=== PATIENT | female | born 1960 | race Caucasian/White ===

== ENCOUNTER 2023-03-13 16:45 | Emergency (ER) | payer SELFPAY ==
[2023-03-13] VITALS (39 sets, daily range): BP systolic 99–126; BP diastolic 51–82; PULSE 63–97; RESP 14–28; TEMP 36.5–36.8; O2SAT 92–100; BMI 26.4
--- NOTE | 2023-03-13 16:58 | ED_ITS ---
HPI - General Adult <Anthony Lam DO - Last Filed: 03/13/23 18:25> General Chief complaint: Trauma Stated complaint: mod trauma Time Seen by Provider: 03/13/23 16:54 Source: patient Mode of arrival: EMS Limitations: no limitations History of Present Illness HPI narrative: Patient is a 62-year-old female. She was helmeted. Was riding a horse when she states that the horse got spooked. She fell off the horse. She use her right arm to break her fall. Has an obvious deformity to her left wrist. No other injuries from the event. She was ambulatory afterwards. She was not kicked nor stomped on by the horse. She reports no other injuries but her left wrist/forearm. Her left wrist was splinted and she was given both fentanyl and ketamine prior to arrival. Related Data Allergies Allergy/AdvReac Type Severity Reaction Status Date / Time Sulfa (Sulfonamide AdvReac Mild Nausea Verified 03/13/23 17:10 Antibiotics) Review of Systems <DO Esmer Zamora Last Filed: 03/13/23 18:25> Constitutional Constitutional: Reports system reviewed and no additional complaints, except as documented Musculoskeletal Musculoskeletal: Reports system reviewed and no additional complaints, except as documented Integumentary/Breasts Skin/Breast: Reports system reviewed and no additional complaints, except as documented Neurologic Neurologic: Reports system reviewed and no additional complaints, except as documented Hematologic/Lymphatic On Anticoagulants: No Patient History <DO Esmer Zamoar Last Filed: 03/13/23 18:25> Social History Smoking Status: Never smoker Exam <DO Esmer Zamora Last Filed: 03/13/23 18:25> Initial Vital Signs Initial Vital Signs: Vital Signs Temperature 97.7 F 03/13/23 16:48 Pulse Rate 73 03/13/23 16:48 Respiratory Rate 14 03/13/23 16:48 Blood Pressure 126/78 03/13/23 16:48 Pulse Oximetry 99 03/13/23 16:48 Oxygen Delivery Method Room Air 03/13/23 16:48 HENMT Head: normal to inspection and normocephalic Resp Effort & Inspection: normal respiratory effort Auscultation: clear to auscultation bilaterally Cardio Rate: regular rate Rhythm: regular rhythm GI Inspection: normal to inspection and non-distended Palpation: soft and No tender Back/Spine/Pelvis Cervical Spine: No cervical spinal tenderness Skin Other: Multiple skin abrasions in the left forearm Neuro Sensory Exam: no sensory deficits noted Extrem Other: Obvious deformity to the left wrist. Her left shoulder is unremarkable. Right upper extremity is unremarkable. Pelvis is stable. Bilateral lower extremities unremarkable. <Donavan Espinoza DO - Last Filed: 03/14/23 02:58> Initial Vital Signs Initial Vital Signs: Vital Signs Temperature 97.7 F 03/13/23 16:48 Pulse Rate 73 03/13/23 16:48 Respiratory Rate 14 03/13/23 16:48 Blood Pressure 126/78 03/13/23 16:48 Pulse Oximetry 99 03/13/23 16:48 Oxygen Delivery Method Room Air 03/13/23 16:48 <Donavan Espinoza DO - Last Filed: 03/14/23 02:58> Orthopedic Fracture Reduction Fracture #1: Time Out Performed: Yes Side: left Fracture Reduction Location: radius and ulna Analgesia: procedural sedation Technique: direct manipulation and traction/counter-traction Post Reduction X-rays Demonstrate: anatomical reduction Post-reduction neuro exam: intact Post-reduction vascular exam: intact Splint Applied: Yes Patient Tolerated Procedure: Well Orthopedic Splinting/Casting Injury #1: Side: left Upper Extremity Injury Location: wrist Upper Extremity Immobilizer: sling/shoulder immobilizer and sugar tong splint Post splinting neuro exam: intact Post splinting vascular exam: intact Placed by: Provider Procedural Sedation Consent signed: Yes Time out performed: Yes Indication: fracture/dislocation reduction ASA Class: II Mallampati Airway Classification: Class II IV Propofol dose (mg): 70 Intraservice time/total sedation time (min): 12 ED Sedation Level: Moderate (Concious) Patient Tolerated Procedure: Well Complications: none Scores <Anthony Lam DO - Last Filed: 03/13/23 18:25> GCS Heather coma scale eye opening: Spontaneous Heather coma scale verbal response: Orientated Heather coma scale motor response: Obey commands Heather coma scale total score: 15 Nexus Score for C-Spine Focal Neurologic deficit present: No Midline spinal tenderness present: No Altered level of conciousness present: No Intoxication present: No Distracting Injury Present: No Nexus Criteria for C-spine: 0 <Donavan Espinoza DO - Last Filed: 03/14/23 02:58> GCS Heather coma scale total score: 15 Nexus Score for C-Spine Nexus Criteria for C-spine: 0 Course <DO Esmer Zamora Last Filed: 03/13/23 18:25> Orders Ordered: ED Orders 03/13/23 19:14 XR wrist LT 2V Stat Discontinued Medications Hydrocodone Bitart/Acetaminophen (Hydrocodone/Acet 5/325 Prepack) 1 bottle MISC SEEINSTR ONE Stop: 03/13/23 19:45 Last Admin: 03/13/23 20:23 Dose: 1 bottle Documented By: JARETT Fentanyl (Fentanyl 100 Mcg/2 Ml Inj) 50 mcg IV NOW ONE Stop: 03/13/23 18:31 Last Admin: 03/13/23 18:48 Dose: 50 mcg Documented By: JARETT Hydromorphone HCl (Hydromorphone 1 Mg Inj) 1 mg IV NOW ONE Stop: 03/13/23 17:58 Last Admin: 03/13/23 18:09 Dose: 1 mg Documented By: JARETT Hydromorphone HCl (Hydromorphone 1 Mg Inj) 1 mg IV NOW ONE Stop: 03/13/23 20:30 Last Admin: 03/13/23 20:35 Dose: 1 mg Documented By: JARETT Sodium Chloride (Normal Saline 0.9%) 500 mls @ 1,000 mls/hr IV BOLUS ONE Stop: 03/13/23 20:03 Last Infusion: 03/13/23 20:22 Dose: 0 mls/hr Documented By: Admin: 03/13/23 19:40 Dose: 1,000 mls/hr Documented By: JARETT Ondansetron HCl (Ondansetron 4 Mg/2 Ml Inj) 4 mg IV NOW ONE Stop: 03/13/23 18:31 Last Admin: 03/13/23 18:48 Dose: 4 mg Documented By: JARETT Ondansetron HCl (Ondansetron 4 Mg Odt Prepack) 1 bottle MISC SEEINSTR ONE Stop: 03/13/23 19:45 Last Admin: 03/13/23 20:23 Dose: 1 bottle Documented By: JARETT Propofol (Propofol 200 Mg/20 Ml Vial) 65 mg 1 mg/kg (65 mg) IV NOW ONE Stop: 03/13/23 18:31 Last Admin: 03/13/23 19:05 Dose: 65 mg Documented By: SB Vital Signs Vital signs: Vital Signs - 8 hr 03/13/23 18:56 03/13/23 19:10 03/13/23 19:20 Temperature 98.2 F Pulse Rate 91 H 92 H 77 Respiratory Rate 18 17 23 Blood Pressure 111/59 L 106/59 L 105/58 L Pulse Oximetry 99 96 100 Oxygen Delivery Method Oxygen Flow Rate 0 37 0 03/13/23 19:25 03/13/23 19:30 03/13/23 19:35 Temperature Pulse Rate 77 77 92 H Respiratory Rate 22 16 20 Blood Pressure 99/58 L 104/63 104/63 Pulse Oximetry 100 100 100 Oxygen Delivery Method Oxygen Flow Rate 0 0 0 03/13/23 19:15 03/13/23 18:55 03/13/23 18:55 Temperature Pulse Rate 82 71 Respiratory Rate 22 17 Blood Pressure 112/59 L 103/53 L Pulse Oximetry 100 98 Oxygen Delivery Method Oxygen Flow Rate 0 03/13/23 18:59 03/13/23 18:59 03/13/23 19:00 Temperature Pulse Rate 79 Respiratory Rate 15 Blood Pressure 110/58 L 109/61 Pulse Oximetry 99 Oxygen Delivery Method Oxygen Flow Rate 03/13/23 19:00 03/13/23 19:05 03/13/23 19:05 Temperature Pulse Rate 79 78 Respiratory Rate 17 21 Blood Pressure 111/59 L Pulse Oximetry 99 100 Oxygen Delivery Method Oxygen Flow Rate 03/13/23 19:10 03/13/23 19:10 03/13/23 19:15 Temperature Pulse Rate 80 89 Respiratory Rate 19 14 Blood Pressure 106/59 L Pulse Oximetry 98 96 Oxygen Delivery Method Oxygen Flow Rate 03/13/23 19:15 03/13/23 19:22 03/13/23 19:22 Temperature Pulse Rate 81 Respiratory Rate 20 Blood Pressure 112/59 L 105/58 L Pulse Oximetry 100 Oxygen Delivery Method Oxygen Flow Rate 03/13/23 19:25 03/13/23 19:25 03/13/23 19:30 Temperature Pulse Rate 74 Respiratory Rate 15 Blood Pressure 99/58 L 104/63 Pulse Oximetry 100 Oxygen Delivery Method Oxygen Flow Rate 03/13/23 19:30 03/13/23 19:36 03/13/23 19:36 Temperature Pulse Rate 80 87 Respiratory Rate 16 19 Blood Pressure 108/54 L Pulse Oximetry 100 100 Oxygen Delivery Method Oxygen Flow Rate 03/13/23 19:40 03/13/23 19:40 03/13/23 19:45 Temperature Pulse Rate 90 Respiratory Rate 21 Blood Pressure 108/57 L 107/63 Pulse Oximetry 100 Oxygen Delivery Method Oxygen Flow Rate 03/13/23 19:45 03/13/23 19:50 03/13/23 19:50 Temperature Pulse Rate 90 85 Respiratory Rate 18 19 Blood Pressure 110/62 Pulse Oximetry 100 100 Oxygen Delivery Method Oxygen Flow Rate 03/13/23 19:55 03/13/23 19:55 03/13/23 20:00 Temperature Pulse Rate 76 Respiratory Rate 19 Blood Pressure 110/61 107/56 L Pulse Oximetry 100 Oxygen Delivery Method Oxygen Flow Rate 03/13/23 20:00 03/13/23 20:05 03/13/23 20:05 Temperature Pulse Rate 91 H 97 H Respiratory Rate 21 16 Blood Pressure 115/57 L Pulse Oximetry 100 100 Oxygen Delivery Method Oxygen Flow Rate 03/13/23 20:10 03/13/23 20:10 03/13/23 20:15 Temperature Pulse Rate 92 H 86 Respiratory Rate 24 20 Blood Pressure 109/60 Pulse Oximetry 100 100 Oxygen Delivery Method Room Air Oxygen Flow Rate 03/13/23 20:15 03/13/23 20:20 03/13/23 20:20 Temperature Pulse Rate 74 Respiratory Rate 24 Blood Pressure 105/58 L 111/56 L Pulse Oximetry 100 Oxygen Delivery Method Room Air Oxygen Flow Rate 03/13/23 20:25 03/13/23 20:25 03/13/23 20:30 Temperature Pulse Rate 89 Respiratory Rate 20 Blood Pressure 110/58 L 122/59 L Pulse Oximetry 100 Oxygen Delivery Method Oxygen Flow Rate 03/13/23 20:30 03/13/23 20:36 03/13/23 20:36 Temperature Pulse Rate 92 H 90 Respiratory Rate 28 H 15 Blood Pressure 124/82 Pulse Oximetry 100 99 Oxygen Delivery Method Room Air Oxygen Flow Rate 03/13/23 20:40 Temperature Pulse Rate Respiratory Rate Blood Pressure 121/75 Pulse Oximetry Oxygen Delivery Method Oxygen Flow Rate <Donavan Espinoza, DO - Last Filed: 03/14/23 02:58> Orders Ordered: ED Orders 03/13/23 19:14 XR wrist LT 2V Stat Discontinued Medications Hydrocodone Bitart/Acetaminophen (Hydrocodone/Acet 5/325 Prepack) 1 bottle MISC SEEINSTR ONE Stop: 03/13/23 19:45 Last Admin: 03/13/23 20:23 Dose: 1 bottle Documented By: JARETT Fentanyl (Fentanyl 100 Mcg/2 Ml Inj) 50 mcg IV NOW ONE Stop: 03/13/23 18:31 Last Admin: 03/13/23 18:48 Dose: 50 mcg Documented By: JARETT Hydromorphone HCl (Hydromorphone 1 Mg Inj) 1 mg IV NOW ONE Stop: 03/13/23 17:58 Last Admin: 03/13/23 18:09 Dose: 1 mg Documented By: JARETT Hydromorphone HCl (Hydromorphone 1 Mg Inj) 1 mg IV NOW ONE Stop: 03/13/23 20:30 Last Admin: 03/13/23 20:35 Dose: 1 mg Documented By: JARETT Sodium Chloride (Normal Saline 0.9%) 500 mls @ 1,000 mls/hr IV BOLUS ONE Stop: 03/13/23 20:03 Last Infusion: 03/13/23 20:22 Dose: 0 mls/hr Documented By: Admin: 03/13/23 19:40 Dose: 1,000 mls/hr Documented By: JARETT Ondansetron HCl (Ondansetron 4 Mg/2 Ml Inj) 4 mg IV NOW ONE Stop: 03/13/23 18:31 Last Admin: 03/13/23 18:48 Dose: 4 mg Documented By: JARETT Ondansetron HCl (Ondansetron 4 Mg Odt Prepack) 1 [facility] Stop: 03/13/23 19:45 Last Admin: 03/13/23 20:23 Dose: 1 bottle Documented By: JARETT Propofol (Propofol 200 Mg/20 Ml Vial) 65 mg 1 mg/kg (65 mg) IV NOW ONE Stop: 03/13/23 18:31 Last Admin: 03/13/23 19:05 Dose: 65 mg Documented By: JARETT Consultations Consultation #1: Discussed with on-call orthopedist, Dr. Mak. We have discussed history and physical exam, he is reviewed imaging, agrees with the plan to perform sedation, closed reduction with splinting and follow-up Vital Signs Vital signs: Vital Signs - 8 hr 03/13/23 18:56 03/13/23 19:10 03/13/23 19:20 Temperature 98.2 F Pulse Rate 91 H 92 H 77 Respiratory Rate 18 17 23 Blood Pressure 111/59 L 106/59 L 105/58 L Pulse Oximetry 99 96 100 Oxygen Delivery Method Oxygen Flow Rate 0 37 0 03/13/23 19:25 03/13/23 19:30 03/13/23 19:35 Temperature Pulse Rate 77 77 92 H Respiratory Rate 22 16 20 Blood Pressure 99/58 L 104/63 104/63 Pulse Oximetry 100 100 100 Oxygen Delivery Method Oxygen Flow Rate 0 0 0 03/13/23 19:15 03/13/23 18:55 03/13/23 18:55 Temperature Pulse Rate 82 71 Respiratory Rate 22 17 Blood Pressure 112/59 L 103/53 L Pulse Oximetry 100 98 Oxygen Delivery Method Oxygen Flow Rate 0 03/13/23 18:59 03/13/23 18:59 03/13/23 19:00 Temperature Pulse Rate 79 Respiratory Rate 15 Blood Pressure 110/58 L 109/61 Pulse Oximetry 99 Oxygen Delivery Method Oxygen Flow Rate 03/13/23 19:00 03/13/23 19:05 03/13/23 19:05 Temperature Pulse Rate 79 78 Respiratory Rate 17 21 Blood Pressure 111/59 L Pulse Oximetry 99 100 Oxygen Delivery Method Oxygen Flow Rate 03/13/23 19:10 03/13/23 19:10 03/13/23 19:15 Temperature Pulse Rate 80 89 Respiratory Rate 19 14 Blood Pressure 106/59 L Pulse Oximetry 98 96 Oxygen Delivery Method Oxygen Flow Rate 03/13/23 19:15 03/13/23 19:22 03/13/23 19:22 Temperature Pulse Rate 81 Respiratory Rate 20 Blood Pressure 112/59 L 105/58 L Pulse Oximetry 100 Oxygen Delivery Method Oxygen Flow Rate 03/13/23 19:25 03/13/23 19:25 03/13/23 19:30 Temperature Pulse Rate 74 Respiratory Rate 15 Blood Pressure 99/58 L 104/63 Pulse Oximetry 100 Oxygen Delivery Method Oxygen Flow Rate 03/13/23 19:30 03/13/23 19:36 03/13/23 19:36 Temperature Pulse Rate 80 87 Respiratory Rate 16 19 Blood Pressure 108/54 L Pulse Oximetry 100 100 Oxygen Delivery Method Oxygen Flow Rate 03/13/23 19:40 03/13/23 19:40 03/13/23 19:45 Temperature Pulse Rate 90 Respiratory Rate 21 Blood Pressure 108/57 L 107/63 Pulse Oximetry 100 Oxygen Delivery Method Oxygen Flow Rate 03/13/23 19:45 03/13/23 19:50 03/13/23 19:50 Temperature Pulse Rate 90 85 Respiratory Rate 18 19 Blood Pressure 110/62 Pulse Oximetry 100 100 Oxygen Delivery Method Oxygen Flow Rate 03/13/23 19:55 03/13/23 19:55 03/13/23 20:00 Temperature Pulse Rate 76 Respiratory Rate 19 Blood Pressure 110/61 107/56 L Pulse Oximetry 100 Oxygen Delivery Method Oxygen Flow Rate 03/13/23 20:00 03/13/23 20:05 03/13/23 20:05 Temperature Pulse Rate 91 H 97 H Respiratory Rate 21 16 Blood Pressure 115/57 L Pulse Oximetry 100 100 Oxygen Delivery Method Oxygen Flow Rate 03/13/23 20:10 03/13/23 20:10 03/13/23 20:15 Temperature Pulse Rate 92 H 86 Respiratory Rate 24 20 Blood Pressure 109/60 Pulse Oximetry 100 100 Oxygen Delivery Method Room Air Oxygen Flow Rate 03/13/23 20:15 03/13/23 20:20 03/13/23 20:20 Temperature Pulse Rate 74 Respiratory Rate 24 Blood Pressure 105/58 L 111/56 L Pulse Oximetry 100 Oxygen Delivery Method Room Air Oxygen Flow Rate 03/13/23 20:25 03/13/23 20:25 03/13/23 20:30 Temperature Pulse Rate 89 Respiratory Rate 20 Blood Pressure 110/58 L 122/59 L Pulse Oximetry 100 Oxygen Delivery Method Oxygen Flow Rate 03/13/23 20:30 03/13/23 20:36 03/13/23 20:36 Temperature Pulse Rate 92 H 90 Respiratory Rate 28 H 15 Blood Pressure 124/82 Pulse Oximetry 100 99 Oxygen Delivery Method Room Air Oxygen Flow Rate 03/13/23 20:40 Temperature Pulse Rate Respiratory Rate Blood Pressure 121/75 Pulse Oximetry Oxygen Delivery Method Oxygen Flow Rate Medical Decision Making <Anthony Lam DO - Last Filed: 03/13/23 18:25> Lab Data Lab results reviewed: Yes I reviewed the patient's lab results. 03/13/23 17:05 03/13/23 16:53 Labs: Lab Results 03/13/23 03/13/23 Range/Units 16:53 17:05 WBC 7.2 (4.5-11.0) X10^3/uL RBC 4.60 (4.0-5.2) X10^6/uL Hgb 13.8 (12.0-16.0) g/dL Hct 40.2 (36-46) % MCV 87.4 (80-100) fL MCH 30.0 (26-34) PG MCHC 34.4 (30-36) % RDW 12.8 (11.6-14.8) % Plt Count 278 (150-400) X10^3/uL Neut % (Auto) 66.4 (50-75) % Lymph % (Auto) 22.4 L (25-40) % [place] % (Auto) 8.5 (3-14) % Eos % (Auto) 1.8 L (2-4) % Baso % (Auto) 0.9 (0-2) % Neut # (Auto) 4800 (2171-0350) /uL Lymph # (Auto) 1600 (6204-4088) /uL [place] # (Auto) 600 (0-900) /uL Eos # (Auto) 100 (0-450) /uL Baso # (Auto) 100 (0-100) /uL Sodium 138 (137-145) mmol/L Potassium 4.2 (3.4-5.1) mmol/L Chloride 106 (98-107) mmol/L Carbon Dioxide 23 (22-32) mmol/L BUN 16 (7-17) mg/dL Creatinine 0.96 (0.52-1.04) mg/dL Estimated GFR > 60 (>60) mL/min BUN/Creatinine Ratio 16.7 (6-22) Glucose 88 (80-110) mg/dL Calcium 9.4 (8.4-10.2) mg/dL Point of Care Testing Test Results Not applicable Point of care testing: Point of Care Testing Test Results Not applicable Imaging Data Extremity x-ray #1: Radiologist's Impression: PROCEDURE:? XR WRIST LT MIN 3V ? INDICATIONS: deformity after fall ? TECHNIQUE:? 2 views of the wrist were acquired.? ? COMPARISON:? None. ? FINDINGS:? ? Bones:? There is a comminuted fracture involving the distal radius, with moderate volar displacement and impaction.? There is intra-articular involvement. ? There is a comminuted moderately angulated fracture seen of the distal ulna.? There is also an ulnar styloid fracture seen. ? Soft tissues:? Soft tissue swelling is seen. ? ? IMPRESSION:? Comminuted fractures with significant displacement seen involving the distal radius and distal ulna. ? There is intra-articular involvement of the distal radius fracture.? MDM Narrative Medical decision making narrative: Patient is alert and oriented x3. GCS of 15. C-spine cleared by nexus criteria. Patient's only complaint is discomfort to her left wrist with an obvious deformity in this area. X-rays are ordered. Pain medication provided. Care turned over to Dr. Espinoza to follow-up and disposition. <Donavan Espinoza, DO - Last Filed: 03/14/23 02:58> Lab Data Labs: Lab Results 03/13/23 03/13/23 Range/Units 16:53 17:05 WBC 7.2 (4.5-11.0) X10^3/uL RBC 4.60 (4.0-5.2) X10^6/uL Hgb 13.8 (12.0-16.0) g/dL Hct 40.2 (36-46) % MCV 87.4 (80-100) fL MCH 30.0 (26-34) PG MCHC 34.4 (30-36) % RDW 12.8 (11.6-14.8) % Plt Count 278 (150-400) X10^3/uL Neut % (Auto) 66.4 (50-75) % Lymph % (Auto) 22.4 L (25-40) % [place] % (Auto) 8.5 (3-14) % Eos % (Auto) 1.8 L (2-4) % Baso % (Auto) 0.9 (0-2) % Neut # (Auto) 4800 (4166-4065) /uL Lymph # (Auto) 1600 (3068-5464) /uL [place] # (Auto) 600 (0-900) /uL Eos # (Auto) 100 (0-450) /uL Baso # (Auto) 100 (0-100) /uL Sodium 138 (137-145) mmol/L Potassium 4.2 (3.4-5.1) mmol/L Chloride 106 (98-107) mmol/L Carbon Dioxide 23 (22-32) mmol/L BUN 16 (7-17) mg/dL Creatinine 0.96 (0.52-1.04) mg/dL Estimated GFR > 60 (>60) mL/min BUN/Creatinine Ratio 16.7 (6-22) Glucose 88 (80-110) mg/dL Calcium 9.4 (8.4-10.2) mg/dL Point of Care Testing Test Results Not applicable Point of care testing: Point of Care Testing Test Results Not applicable MDM Narrative Medical decision making narrative: Patient is alert and oriented x3. GCS of 15. C-spine cleared by nexus criteria. Patient's only complaint is discomfort to her left wrist with an obvious deformity in this area. X-rays are ordered. Pain medication provided. Care turned over to Dr. Espinoza to follow-up and disposition. [1800] (Alexis) Patient received in sign out from [Carole]. I have reviewed the clinical course and performed an independent history and physical exam. Patient has obvious deformity to left wrist consistent with displaced distal radius and ulna fracture. It is closed, isolated and neurovascularly intact. She is consented for procedural sedation and closed reduction. Procedures documented above, consultation with orthopedist as noted above. Primary historian is patient herself. She has good outcome, pain is well controlled, remains closed, isolated and neurovascularly intact. She is encouraged to follow closely with the orthopedic office in his provided contact information. Return precautions include but not limited to increasing pain, numbness, tingling, discoloration. Discharge Plan Departure Patient Disposition: Home Clinical Impression: Closed fracture distal radius and ulna Instructions: DI for Distal Radius Fracture Activity Restrictions/Additional Instructions: *You have been diagnosed with [ distal radius fracture] *What to do: *Please continue to take your regular medications as directed. [ ] New medication prescriptions sent to your pharmacy: [ ] [ ] New medication written as a paper prescription [x] Tylenol and occasional Motrin for pain *Please follow up with [Obdulio ] of [facility] in 2-3 days, call for an appointment. Let them know you were seen in the Emergency Department and that we ask that you be seen in follow up. We will electronically transmit a record of today's note if your PCP is in our system *Return to Emergency Department if you should have any new, worsening or concerning symptoms, such as [worsening pain, significant swelling, cold extremities, numbness, tingling, weakness or other bothersome symptoms Splint Care: Keep splint clean and dry. Elevated affected body part to decrease swelling. OK to use ice pack on the affected body part. Use for 15-20 minutes each time, for 5-6x per day. If you develop worsening pain, numbness, tingling, discoloration of the affected body part, loosen the splint by loosening the LUIS wrap, and either see your doctor for an urgent re-assessment, or return to the Emergency Department. Return to the Emergency Department for any new or worsening symptoms. Referrals: Ziggy Mak MD [Physician] - Stand Alone Forms: Patient Portal/API
--- NOTE | 2023-03-13 16:58 | DI.RAD.S_ITS ---
PROCEDURE: XR WRIST LT MIN 3V INDICATIONS: deformity after fall TECHNIQUE: 2 views of the wrist were acquired. COMPARISON: None. FINDINGS: Bones: There is a comminuted fracture involving the distal radius, with moderate volar displacement and impaction. There is intra-articular involvement. There is a comminuted moderately angulated fracture seen of the distal ulna. There is also an ulnar styloid fracture seen. Soft tissues: Soft tissue swelling is seen. IMPRESSION: Comminuted fractures with significant displacement seen involving the distal radius and distal ulna. There is intra-articular involvement of the distal radius fracture. Dictated by: Julio Billingsley M.D. on 03/13/2023 at 16:37 Approved by: Julio Billingsley M.D. on 03/13/2023 at 16:38
[2023-03-13 17:38] LABS: BUN Creatinine Ratio 16.7 (6-22); Blood Urea Nitrogen 16 mg/dL (7-17); Calcium 9.4 mg/dL (8.4-10.2); Carbon Dioxide 23 mmol/L (22-32); Chloride 106 mmol/L (98-107); Estimated Glomerular Filt Rate > 60 mL/min (>60); Glucose 88 mg/dL (80-110); HEMOLYSIS 22 (0-50); Potassium 4.2 mmol/L (3.4-5.1); Sodium 138 mmol/L (137-145)
[2023-03-13 17:47] LABS: Add Manual Diff / Slide Review NO; Basophils Absolute Auto 100 /uL (0-100); Basophils Percent Auto 0.9 % (0-2); Eosinophils Absolute Auto 100 /uL (0-450); Eosinophils Percent Auto 1.8 % (2-4); Hematocrit 40.2 % (36-46); Hemoglobin 13.8 g/dL (12.0-16.0); Lymphocytes Absolute Auto 1600 /uL (1100-4500); Lymphocytes Percent Auto 22.4 % (25-40); Mean Corpuscular HGB Conc 34.4 % (30-36); Mean Corpuscular Volume 87.4 fL (80-100); Monocytes Absolute Auto 600 /uL (0-900); Monocytes Percent Auto 8.5 % (3-14); Neutrophils Absolute Auto 4800 /uL (1500-7000); Neutrophils Percent Auto 66.4 % (50-75); Platelet Count 278 X10^3/uL (150-400); Red Cell Distribution Width 12.8 % (11.6-14.8); White Blood Cell Count 7.2 X10^3/uL (4.5-11.0)
[2023-03-13] MEDS: HYDROMORPHONE 1 MG INJ IV ×2 (18:09→20:35)
[2023-03-13] MEDS: fentaNYL 100 MCG/2 ML INJ 50 MCG IV (18:48)
[2023-03-13] MEDS: ONDANSETRON 4 MG/2 ML INJ IV (18:48)
[2023-03-13] MEDS: propofoL 200 MG/20 ML VIAL 65 MG IV (19:05)
--- NOTE | 2023-03-13 19:14 | DI.RAD.S_ITS ---
PROCEDURE: XR WRIST LT 2V INDICATIONS: post reduction TECHNIQUE: 2 views of the wrist were acquired. COMPARISON: [facility], CR, XR WRIST LT MIN 3V, 03/13/2023, 17:00. FINDINGS: Bones: On this post reduction study, the fractures of the distal radius and distal ulna are clearly improved in alignment. There remains an ulnar styloid fracture. Soft tissues: Soft tissue swelling is seen. The overlying casting material limits evaluation of fine detail. IMPRESSION: Improved anatomic alignment on this post reduction study. Dictated by: Julio Billingsley M.D. on 03/13/2023 at 18:54 Approved by: Julio Billingsley M.D. on 03/13/2023 at 18:55
[2023-03-13] MEDS: SODIUM CHLORIDE 0.9% 500 ML 1000 ML IV (19:40)
[2023-03-13] MEDS: ONDANSETRON 4 MG ODT PREPACK 1 BOTTLE MISC (20:23)
[2023-03-13] MEDS: HYDROCODONE/ACET 5/325 PREPACK 1 BOTTLE MISC (20:23)
== END 2023-03-13 20:54 | disposition home or self-care (01) ==
PROVIDERS: Emergency Medicine; Emergency Provider Emergency Medicine
DX: S52.502A Unspecified fracture of the lower end of left radius, initial encounter for closed fracture (principal); S52.602A Unspecified fracture of lower end of left ulna, initial encounter for closed fracture; V80.010A Animal-rider injured by fall from or being thrown from horse in noncollision accident, initial encounter
CPT/HCPCS: 25605; 29125; 36415; 73100; 73110; 80048; 85025; 96361; 96374; 96375; 96376; 99152; 99284; 99285; J1170; J2405; J2704; J3010

== ENCOUNTER → 2025-02-05 17:48 | Outpatient (CLI) | payer MEDICARE, OTHER, SELFPAY ==
--- NOTE | 2025-02-05 17:49 | DI.MG.S_ITS ---
MM screening mammo BI: 02/05/2025. BI-RADS: 1 CLINICAL: 64-year old female for bilateral screening mammogram. Tyrer-Cuzick lifetime risk of 9.0%. No personal or first-degree family history of breast cancer. The patient had a prior left breast biopsy. PRIOR EXAMS: No prior examinations available. 04/19/18, 07/29/15,05/19/10. MAMMOGRAPHY TECHNIQUE: 2D and 3D (tomosynthesis) digital mammographic views obtained, with additional images as needed for full coverage. Current study was also evaluated with a Computer Aided Detection (CAD) system. DENSITY C. The breasts are heterogeneously dense, which may obscure small masses. MAMMOGRAPHY FINDINGS Bilateral: No suspicious mass, asymmetry, microcalcification, or other abnormality seen. IMPRESSION: * No evidence of malignancy. RECOMMENDATIONS Bilateral * Annual screening mammography. OVERALL ASSESSMENT CATEGORY BI-RADS-1: Negative. The [employer] recommends annual screening mammography beginning at age 40 for women with average risk of breast cancer. ELECTRONICALLY SIGNED: Kai Nam M.D. on 02/06/2025 at 07:24:45 AM PT Interpreting Station ID: [id number]
== END ==
PROVIDERS: PCP Family Medicine; Referring Provider Family Medicine; Visit Provider Family Medicine
DX: Z12.31 Encounter for screening mammogram for malignant neoplasm of breast (principal); R92.333 Mammographic heterogeneous density, bilateral breasts
CPT/HCPCS: 77063; 77067

== ENCOUNTER → 2025-03-04 11:40 | Outpatient (CLI) | payer MEDICARE, OTHER, SELFPAY ==
[2025-03-04 12:44] LABS: Alanine Aminotransferase 24 IU/L (<35); Albumin 4.6 g/dL (3.5-5.0); Albumin Globulin Ratio 1.6 (1.0-2.8); Alkaline Phosphatase 83 U/L (38-126); Blood Urea Nitrogen 11 mg/dL (7-17); Calcium 9.8 mg/dL (8.4-10.2); Carbon Dioxide 26 mmol/L (22-32); Chloride 101 mmol/L (98-107); Estimated Glomerular Filt Rate 58 mL/min (>60); Globulin 2.8 g/dL (1.7-4.1); Glucose 76 mg/dL (70-99); HEMOLYSIS < 15 (0-50); Potassium 4.6 mmol/L (3.4-5.1); Sodium 136 mmol/L (137-145); Total Protein 7.4 g/dL (6.3-8.2)
[2025-03-04 13:00] LABS: Free T3, Triiodothyronine Free 4.01 pg/mL (2.77-5.27); Free T4, Direct Thyroxine 0.99 ng/dL (0.78-2.19)
[2025-03-04 13:14] LABS: Thyroid Stimulating Hormone 1.75 uIU/mL (0.47-4.68)
[2025-03-04 15:00] LABS: Vitamin D 25 Hydroxy (D3) 67.3 ng/mL (30.0-100.0)
[2025-03-06 07:38] LABS: Cholesterol, Total 276 mg/dL (100-199); HDL-Particle (Total) 39.0 umol/L (>=30.5); LDL Particle 1300 nmol/L (<1000); LDL-Cholsterol 142 mg/dL (0-99); Small LDL- Particle <90 nmol/L (<=527); Triglycerides 99 mg/dL (0-149)
[2025-03-09 00:10] LABS: Estradiol, Sensitive 3.8 pg/mL (.)
== END ==
PROVIDERS: PCP Family Medicine; Referring Provider Family Medicine; Visit Provider Family Medicine
DX: E78.41 Elevated Lipoprotein(a) (principal); M81.0 Age-related osteoporosis without current pathological fracture; E06.3 Autoimmune thyroiditis
CPT/HCPCS: 36415; 80053; 80061; 82306; 82523; 82670; 83695; 83704; 84439; 84443; 84481